=== PATIENT | male | born 1945 | race African-American/Black ===

== ENCOUNTER 2017-06-03 09:15 | Emergency (ER) | payer OTHER, MEDICAID ==
[2017-06-03 09:18] VITALS: BP 160/92; BMI 21.6
[2017-06-03] MEDS ORDERED: TYLENOL 500 MG TAB EXTRA STRENGTH ONE (09:39)
--- NOTE | 2017-06-03 09:42 | DR.EXTPAIN ---
HPI - Time seen Time seen: 13:00 - PCP Primary Care Physician: MARIS GARCIA - Complaint/Symptoms Chief Complaint Doctor Comments: L lower chest wall pain after falling 2-3 days ago. Chief Complaint:: PT. FELL 3 DAYS AGO LANDING ON HIS LEFT SIDE. PT. C/O LEFT SIDED RIB PAIN. Self Treatment fo Chief Complaint: Patient has not taken any pain meds for his pain. - Nurses notes reviewed Nurses Notes Review: Yes - Source History Provided: Patient - Mode of arrival Mode of Arrival: Ambulatory - Timing Onset of Chief Complaint: 05/31/17 - Context History of: None - Associated signs and symptoms Associated Signs and Symptoms: None PMH - PMH Past Medical History: Yes Past Medical History: Arthritis, Coronary Artery Disease, Diabetes, Hypertension Past Surgical History: Yes Surgical History: Angioplasty/Stents, Ortho Surgery - Family History History of Family Medical Conditions: Yes Family Medical History: Diabetes Mellitus, Coronary Artery Disease - Social History Does patient currently use any type of tobacco product: Yes Have you used tobacco products in the last 12 months: Yes Type of Tobacco Use: Cigars Does any household member use tobacco: No Alcohol Use: None Do you use any recreational Drugs:: Yes (MARIJUANA) Lives With: Spouse Lives Where: Home - infectious screening In the last 2 months have you had wt loss of >10#?: NO Have you had fever, night sweats or hemotysis?: No Have you traveled outside the country in the last 6 months?: No Isolation: Standard ROS - Review of Systems Respiratoy: Other Cardiovascular: No Symptoms Reported, Chest Pain Gastrointestinal/Abdominal: No Symptoms Reported Genitourinary: No Symptoms Reported Neurological: No Symptoms Reported Musculoskeletal: Chest wall (pain) Integumentary: No Symptoms Reported Hematologic/Lymphatic: No Symptoms Reported Endocrine: No Symptoms Reported Psychiatric: No Symptoms Reported All Other Systems: Reviewed and Negative PE - Vital Signs Vitals: Temperature 98.1 F Pulse Rate 88 Respiratory Rate 17 Blood Pressure [Right Arm] 123/71 Blood Pressure 160/92 O2 Sat by Pulse Oximetry 96 - General Limitations: No Limitations General Appearance: Alert, In No Apparent Distress - Head Head Exam: Normal Inspection - Neck Neck Exam: Normal Inspection - Chest Chest Inspection: Normal Inspection, Other (L lower chest wall pain and TTP, no obvius bruising is noted.) - Respiratory Respiratory Exam: Bilateral Clear to Auscultation - Cardiovascular Cardiovascular Exam: Regular Rate, Normal Rhythm, Normal Heart Sounds - Abdominal Exam Abdominal Exam: Normal Inspection - Extremities Extremities Exam: Normal Inspection, Full ROM - Upper Extremities Shoulder Exam: Normal Inspection Elbow Exam: Normal Inspection - Back Back Exam: Normal Inspection MDM - Differential Diagnosis Differential Diagnosis: Other (chest wall pain) - Diagnosis Discharge Problem: Chest wall pain - Discharge Plan Disposition: 01 HOME, SELF-CARE Condition: Stable Prescriptions: Tramadol HCl [ULTRAM 50 MG *] 1 tab PO BID #20 tab - Follow ups/Referrals Follow ups/Referrals: SERA ROBLEDO [Primary Care Provider] - 3 days - Instructions Instructions: Fall Prevention in the Home, [id number], Chest Contusion, Chest Contusion, [id number]-ev-Heag
[2017-06-03] MEDS ORDERED: TYLENOL 500 MG TAB EXTRA STRENGTH PO ONE (09:45)
--- NOTE | 2017-06-03 10:05 | RAD ---
HISTORY: Left-sided rib pain after a fall Study: PA chest and three views left ribs Comparison: May 21, 2016 Findings: The trachea is midline. The cardiac silhouette is unremarkable. There is limited inspiration kwasi red to prior exam with bibasilar 's minimal subsegmental atelectasis.. The bony thorax is unremarka ble. No acute cortical disruption or angulation of the bony left hemithorax can be identified. No underl margot pneumothorax is seen. IMPRESSION: 1. Bibasilar subsegmental atelectasis 2. No evidence for acute rib fracture can be identified. Reported By:
== END 2017-06-03 10:42 | disposition home or self-care (01) ==
LOC: ER 09:22
DX: R07.89 Other chest pain (principal); J98.11 Atelectasis
CPT/HCPCS: 71111; 99282; 99283